=== PATIENT | male | born 1955 | race Caucasian/White ===

== ENCOUNTER → 2016-09-18 | Outpatient (CLI) | payer MEDICARE, OTHER ==
[~2016-09-18] MED LIST: ASPIRIN PO; ASPIRINEC PO; ATENOLOL PO; AZOR 5-20 MG T1 EACH; BENTYL20 MG PO; DEPAKOTE PO; DUONEB 2.5-0.5 M3 ML NEB; EFFEXOR XR PO; LIPITOR; LOPRESSOR PO; LORTAB 2.5/5001 TAB PO; LOTREL; LOTREL 5-20 MG1 CAP PO; NEURONTIN PO; NITROGLYGERIN0.4 MG SL; NORCO 7.5/325 T1 TAB PO; OPANA PO; PLAVIX PO; PRILOSEC; PROTONIX PO; SULAR PO; TOPROL XL 50 MG50 MG PO; TRICOR PO; TYLENOL #3 PO; ZOCOR PO; ZYLOPRIM PO; [UNRECOGNIZED DRUG - OTHER]
--- NOTE | ~2016-09-18 | CT57 ---
[facility] A Service of [facility] & [facility] RADIOLOGY TEXT RESULTS PATIENT: YAW BLANCO [facility] 57 [facility] #: [id number] AGE: [address]: Reginald Arellano MD SEX: M ORDER DR: [id number] [facility] [address] [place], [place] [address] [id number] O MR#: [id number] [facility] #: [id number] NAME: YAW BLANCO. : 1955 SEX: M STUDY DATE/TIME: 09/18/2016 10:26 UNIT: [facility] ROOM: STUDY DESCRIPTION: CT Chest Wo Cont Attending Physician: Reginald Arellano M.D. Referring Physician: Reginald Arellano M.D. Ordering Physician: Reginald Arellano M.D. Primary Care Physician: Segundo Taylor Jr., M.D. MEDICAL IMAGING REPORT This report is preliminary unless electronic signature is present EXAM CT chest without contrast, 09/18/2016. HISTORY Lung cancer. Observation for metastatic disease. Restaging. Shortness of breath since 2014. History of coronary artery bypass graft. History of partial right lung resection. COMPARISON CT chest without contrast 06/23/2015. Head CT 06/29/2015. PROCEDURE 5-mm axial images through the chest without contrast. Sagittal and coronal reformatted images were obtained. This CT exam was performed with one or more of the following radiation dose reduction techniques: automatic exposure control, adjustment of mA and/or kV according to patient size, and iterative reconstruction. FINDINGS Volume loss in the right hemithorax is consistent with stated history of partial right lung resection. Lobulated noncalcified nodule is seen within the right upper lung zone. On today's examination, this nodule measures approximately 1.2 x 1.3 cm in the axial plane. Morphology appears slightly different than on the previous examination; it appears partially and slightly less dense, but the overall size measurements appear stable. No new pulmonary nodules are identified. No acute airspace disease is seen. Mild to moderate emphysematous changes are present. Benign calcified granulomas are present within both lungs. Mild subpleural interstitial fibrosis is demonstrated within the right lung. No pericardial effusion or pleural effusion is seen. No pathologic adenopathy is identified. Heart size is within normal limits with signs of prior CABG. Imaged [facility] A Service of [facility] & [facility] RADIOLOGY TEXT RESULTS PATIENT: YAW BLANCO LOCATION: [facility] : 57 UNIT #: [id number] AGE: [address]: Reginald Arellano MD SEX: M ORDER DR: thyroid gland is normal. Tiny gallstones are present without pericholecystic inflammation or biliary ductal dilation. Nonspecific bilateral perinephric stranding, which may represent normal variant for this patient, is unchanged. Adrenal glands normal. Remainder of included upper abdominal organs appear normal. No suspicious osteolytic or osteoblastic lesions are identified. IMPRESSION 1. Noncalcified right upper lobe pulmonary nodule consistent with patient's known history of lung malignancy, corresponds to the hypermetabolic nodule on the outside PET/CT from 04/28/2016. While the morphology of the nodule appears slightly different, slightly less intense than on the previous 04/22/2016 examination, the overall measurements are fairly similar. However, there is no convincing evidence of metastatic disease elsewhere within the chest. 2. Partial right lung resection changes. 3. Dbdx-qm-[id number] generalized emphysema. 4. CABG changes. 5. Uncomplicated cholelithiasis. Dictated by... Opal Nixon M.D. THIS IS AN ELECTRONICALLY VERIFIED REPORT Opal Nixon M.D. at 09/21/2016 8:32 AM JAIRO/ben TD: 09/18/2016 15:53 JOB #: [id number] MEDICAL IMAGING REPORT Page 1 of 1 COPY
== END | disposition home or self-care (01) ==
LOC: CCAT 09:54
DX: N18.3 Chronic kidney disease, stage 3 (moderate) (principal); D63.1 Anemia in chronic kidney disease; K90.9 Intestinal malabsorption, unspecified; D50.9 Iron deficiency anemia, unspecified; R91.1 Solitary pulmonary nodule; J43.9 Emphysema, unspecified; K80.20 Calculus of gallbladder without cholecystitis without obstruction; Z95.1 Presence of aortocoronary bypass graft
CPT/HCPCS: 71250